=== PATIENT | male | born 1950 | race Caucasian/White ===

== ENCOUNTER 2018-05-24 11:41 | Outpatient (REF) | payer MEDICARE, MEDICAID, SELFPAY ==
[2018-05-24 19:26] LABS: BUN 14 mg/dL (7-18); CREATININE 0.86 mg/dL (0.70-1.30)
== END 2018-05-24 12:01 ==
LOC: NCHCN 11:41
PROVIDERS: PCP Physician Assistant; Visit Provider Physician Assistant Medical
DX: J44.9 Chronic obstructive pulmonary disease, unspecified (principal)
CPT/HCPCS: 84520; 82565

== ENCOUNTER 2019-10-31 22:23 | Outpatient (REF) | payer MEDICARE, MEDICAID, SELFPAY ==
[2019-10-31 19:04] LABS: Abs Immature Grans 0.02 k/cumm (0.0-0.09); Absolute Basophil Count 0.01 k/cumm (0.0-0.2); Absolute Eosinophil Count 0.12 k/cumm (0.0-0.7); Absolute Lymphocyte Count 2.71 k/cumm (1.2-3.4); Basophils % 0.1; Eosinophils % 0.9; HCT 44.4 % (40.0-50.0); HGB 15.1 g/dL (13.5-17.5); Immature Grans % 0.2 %; Lymphocytes % 21.2; Mean Corpuscular Hemoglobin 33.8 pg (27.0-33.0); Mean Corpuscular Volume 99.3 fL (80-95); Mean Platelet Volume 10.1 fL (8.0-11.0); Monocytes % 9.2; Neutrophils % 68.4; Platelet Count 275 x1000/uL (130-400); RBC 4.47 m/cumm (4.50-6.00); RBC Distribution Width 14.1 % (11.8-14.1); White Blood Cell Count 12.78 k/cumm (4.4-10.8)
[2019-10-31 19:22] LABS: ALT 20 U/L (16-63); AST 24 U/L (15-37); Albumin 3.6 g/dL (3.4-5.0); Alkaline Phosphatase 100 U/L (46-116); Anion Gap 8.2 mmol/L (3-11); BUN 13 mg/dL (7-18); Bilirubin, Total 0.5 mg/dL (0.2-1.0); CO2 29.8 mmol/L (21.0-32.0); CREATININE 0.77 mg/dL (0.70-1.30); Calcium 8.8 mg/dL (8.5-10.1); Chloride 102 mmol/L (98-107); Glucose 106 mg/dL (74-106); Potassium 4.4 mmol/L (3.5-5.1); Sodium 140 mmol/L (136-145); Total Protein 6.6 g/dL (6.4-8.2)
[2019-10-31 19:27] LABS: Absolute Monocyte Count 1.18 k/cumm (0.11-0.7); Absolute Neutrophil Count 8.74 k/cumm (1.2-6.7)
[2019-10-31 19:38] LABS: Calculated LDL 100 mg/dL (<100); Cholesterol 185 mg/dL (<200); HDL Cholesterol 76 mg/dL (40-60); Triglyceride 46 mg/dL (<150)
[2019-11-02 11:10] LABS: PSA, Diagnostic 5.3 ng/mL (0.0-6.5)
== END 2019-10-31 22:43 ==
LOC: NCHCN 22:23
PROVIDERS: PCP Physician Assistant; Visit Provider Physician Assistant
DX: E78.5 Hyperlipidemia, unspecified (principal); E27.9 Disorder of adrenal gland, unspecified; R97.20 Elevated prostate specific antigen [PSA]; N40.1 Benign prostatic hyperplasia with lower urinary tract symptoms; J44.9 Chronic obstructive pulmonary disease, unspecified
CPT/HCPCS: 80053; 80061; 84153; 85025

== ENCOUNTER 2020-06-19 13:45 | Outpatient (REF) | payer MEDICARE, MEDICAID, SELFPAY ==
[2020-06-20 17:29] LABS: COVID-19 RT-PCR UVMMC Result Negative (Negative)
== END 2020-06-19 13:46 | disposition home or self-care (01) ==
LOC: NCHCN 13:45
PROVIDERS: PCP Physician Assistant; Visit Provider Physician Assistant
DX: J06.9 Acute upper respiratory infection, unspecified (principal)
CPT/HCPCS: U0003; U0005

== ENCOUNTER 2021-02-05 12:47 | Outpatient (REF) | payer MEDICARE, MEDICAID, SELFPAY ==
--- OUTSIDE RECORDS SUMMARY | 2021-02-05 12:56 | XMS_ITS ---
:1950 Author Care Team Providers Name Role Phone HARLEY STINSON MD Primary Care Provider [phone] AFTAB FITCH General Surgeon [phone] ANDRES HENSLEY MD General Surgeon [phone] MACEY BRITT MD Urologist [phone] LAMIN HO MD Computer Instructor [phone] Allergies Code Code System Name Reaction Severity Status Onset [id number] RxNorm Milk ? ? Active ? Medications Name Status Start Date Stop Date ? ? alfuzosin ER 10 mg tablet,extended release 24 hr Active ? Not available Take 1 tablet every day by oral route after meals for 90 days. cetirizine 10 mg chewable tablet Active ? Not available Chew 1 tablet every day by oral route. diclofenac 1 % topical gel Active ? Not a vailable Flomax 0.4 mg capsule Active ? Not availa ble Take 1 capsule every day by oral route. Flonase 50 mcg/actuation nasal spray,suspension Active ? Not available [place] 1 spray every day by intranasal route. ibuprofen 800 mg tablet Active ? Not avai lable Take 1 tablet 3 times a day by oral route. sulfamethoxazole 800 mg-trimethoprim Completed ? 07/23/2020 160 mg tablet Ventolin HFA 90 mcg/actuation aerosol Active ? Not available inhaler Viagra 100 mg tablet Active ? Not availab le Take 1 tablet every day by oral route. Problems Name Status Onset Date Source ? Hyperlipidemia Active 11/16/2019 ? Hypertensive Disorder Unknown 11/16/2019 ? Hemorrhoids Active 11/16/2019 ? Chronic Obstructive Lung Disease Active 11/16/2019 ? Benign Prostatic Hyperplasia Active 11/16/2019 ? Prostatism Active 11/16/2019 ? Prostatic Pain Active 11/16/2019 ? Neck Pain Active 11/16/2019 ? Elevated Blood Pressure Active 11/16/2019 ? Basal Cell Carcinoma of Face Active ? His tory Closed Fracture of Fibula Active ? Histor y Screening Procedure Active ? History Neoplasm of Skin Active ? History Procedure by Method Active ? History Procedures Date Name Performed by ? 05/14/2017 Excision of Basal Cell Carcinoma Informa tion not available Notes: left face basal ce ll carcinoma; 09/08/2007 basal cell carcinoma of left lower lid 05/14/2017 Colonoscopy Information not alyssa enrique Notes: history of colon p olyps, multiple sessile colon polyps, scattered diverticulosis throughout the colon; 09/08/2007 normal colonoscopy Results Lab Results Date Name Specimen Result Interpretation Description Value Range Status Address ? 07/23/2020 Bladder Scan ? Date and Time 07/23/2020 ? ? P_urology: (PROC) [address] [place] [facility] ? ? Amount in 36mL ? ? P_urol ogy: Bladder [address] [place] [facility] 07/23/2020 Urinalysis, Urine ? Color Yellow ? ? P _urology: Dipstick, clean 41 [employer] [facility] ? ? Urine ? Appearance Clear ? ? P_uro logy: clean [address] [employer] [facility] ? ? Urine ? Glucose Normal ? ? P_urolog y: clean [address] [place] [facility] ? ? Urine ? Bilirubin Negative ? ? P_ur ology: clean [address] [facility] [facility] ? ? Urine ? Ketones Negative ? ? P_urol ogy: clean [address] [facility] ? ? Urine ? Specific 1.030 ? ? P_urolo gy: clean [place] [address] [employer] [facility] ? ? Urine ? Blood Trace ? ? P_urology: clean 41 [place] [facility] ? ? Urine ? Ph 6.0 ? ? P_urology: clean 41 [facility] ? ? Urine ? Protein Negative ? ? P_urol ogy: clean [address] [place] [facility] ? ? Urine ? Urobilinogen 0.2 ? ? P_u rology: clean [address] [facility] ? ? Urine ? Nitrite negative ? ? P_urol ogy: clean [address] [facility] [facility] ? ? Urine ? Leukocyte Negative ? ? P_ur ology: clean Esterase 41 [place] [employer] [facility] 07/03/2020 PSA, Total + S ? Total PSA 5.8 NG/mL <=6 Final North Free, Serum .5 Count ry or Plasma NG/ Hospita l Lab mL (Internal) : [address] ? ? S ? Free PSA 0.5 NG/mL ? Final Nort h [facility] (Internal) : [address] ? ? S ? Free PSA/PSA 0.09 ratio ? Final North Ratio [facility] (Internal) : [address] 11/21/2019 Bladder Scan ? Date and Time 11/21/2019 ? ? P_urology: (PROC) 9:38 [address] [place] [facility] ? ? ? Amount in 101ml ? ? P_urol ogy: Bladder 41 [place] [facility] 11/21/2019 Urinalysis, Urine ? Color Yellow ? ? P _urology: Dipstick, clean 41 Medi lico Reflex [employer] [facility] ? ? Urine ? Appearance Clear ? ? P_uro logy: clean 41 [facility] ? ? Urine ? Glucose Normal ? ? P_urolog y: clean 41 [facility] ? ? Urine ? Bilirubin Negative ? ? P_ur ology: clean 41 [facility] ? ? Urine ? Ketones Negative ? ? P_urol ogy: clean 41 [facility] ? ? Urine ? Specific 1.015 ? ? P_urolo gy: clean [place] [address] [place] [employer] [facility] ? ? Urine ? Blood Trace ? ? P_urology: clean 41 [facility] ? ? Urine ? Ph 6.0 ? ? P_urology: clean 41 Medical catch [facility] ? ? Urine ? Protein Negative ? ? P_urol ogy: clean 41 [facility] ? ? Urine ? Urobilinogen 0.2 ? ? P_u rology: clean 41 [facility] ? ? Urine ? Nitrite negative ? ? P_urol ogy: clean 41 [employer], [place] ? ? Urine ? Leukocyte Negative ? ? P_ur ology: clean Esterase 41 [facility] al [facility] 06/12/2017 Pathology TISS ? Report results ? Final N orth Study below [facility] (Internal) : [address] 05/14/2017 Pathology TISS ? Report results ? [facility] [address] Past Encounters 01/22/2021 Right Side Sciatica; Strain of Muscle of Left Hip; Abnormal Gait Jefferson Gonzalez, PT: [address], [place] [address], Ph. 07/23/2020 Raised Prostate Specific Antigen; Lower Urinary Tract Symptoms Due to Benign Prostatic Hypertrophy; Acquired Generalized Delayed Ejaculation; History of Prostatitis; History of Undescended Testes Macey Britt MD: [address] [place] [address], Ph. 11/21/2019 Raised Prostate Specific Antigen; Lower Urinary Tract Symptoms Due to Benign Prostatic Hypertrophy; History of Prostatitis; History of Undescended Testes Macey Britt MD: [address] [place] [address], Ph. Social History Tobacco Smoking Status Heavy Tobacco Smoker (1 pack per a da y) Vaccine List Vaccine Type COVID-19, mRNA, LNP-S, PF, 100 mcg/0.5 m L dose 07/31/2020?100 mcg 08/27/2020?100 mcg Plan of Care Reminders Provider Appointments None ? ? recorded. Lab None ? ? recorded. Referral None ? ? recorded. Procedures None ? ? recorded. Surgeries None ? ? recorded. Imaging None ? ? recorded. Vitals 07/23/2020 08:00AM Office 20 Weight Blood Pressure 79.38 kg 164/76 mm[Hg] 11/21/2019 09:30AM Office 15 Weight Blood Pressure 76.57 kg 128/60 mm[Hg] 04/07/2017 Weight Blood Pressure 77.11 kg 142/78 mm[Hg] 05/18/2012 Weight Blood Pressure 77.11 kg 114/68 mm[Hg] 03/17/2012 Weight Blood Pressure 77.11 kg 128/79 mm[Hg] 02/20/2012 Weight Blood Pressure 77.11 kg 130/76 mm[Hg] 01/27/2012 Weight Blood Pressure 77.11 kg 128/71 mm[Hg] 01/14/2012 Weight Blood Pressure 77.11 kg 126/71 mm[Hg]
--- OUTSIDE RECORDS SUMMARY | 2021-02-05 12:56 | XMS_ITS | Encounter Summary ---
:1950 Author Care Team Providers Name Role Phone Jean Jackson MD Primary Care Provider [phone] Srini Eden General Surgeon [phone] Aron Haley MD General Surgeon [phone] Kavin Dukes MD Cash On Delivery Clerk [phone] Jacob Britt MD Urologist [phone] Reason for Visit low back pain Assessment and Plan 1. Right side sciatica 2. Strain of muscle of left hip 3. Abnormal gait Discussion Note: None recorded.Patient educational handouts: No information available. Plan of Care Reminders Provider Appointments PT Outpt 02/12/2021 Jefferson Gonzalez, PT 2:30PM ? PT Outpt 02/19/2021 Jefferson slaughter, PT 1:30PM Lab None ? ? recorded. Referral None ? ? recorded. Procedures None ? ? recorded. Surgeries None ? ? recorded. Imaging None ? ? recorded. Medications Name Start Date ? ? alfuzosin ER 10 mg tablet,extended release 24 hr ? Take 1 tablet every day by oral route after meals for 90 days. cetirizine 10 mg chewable tablet ? Chew 1 tablet every day by oral route. diclofenac 1 % topical gel ? Flomax 0.4 mg capsule ? Take 1 capsule every day by oral route. Flonase 50 mcg/actuation nasal spray,suspension ? [place] 1 spray every day by intranasal route. ibuprofen 800 mg tablet ? Take 1 tablet 3 times a day by oral route. Ventolin HFA 90 mcg/actuation aerosol inhaler ? Viagra 100 mg tablet ? Take 1 tablet every day by oral route. Medications Administered None recorded. Vitals None recorded. Results Lab Results None recorded. Allergies Code Code System Name Reaction Severity Onset [id number] RxNorm Milk ? ? ? Problems Name Status Onset Date Source ? Hyperlipidemia Active 11/16/2019 ? Hemorrhoids Active 11/16/2019 ? Chronic [...] left lower lid 05/14/2017 Colonoscopy Information not avai lable Notes: history of colon p olyps, multiple sessile colon polyps, scattered diverticulosis throughout the colon; 09/08/2007 normal colonoscopy Vaccine List Vaccine Type COVID-19, mRNA, LNP-S, PF, 100 mcg/0.5 m L dose 07/31/2020?100 mcg 08/27/2020?100 mcg Social History Tobacco Smoking Status Heavy Tobacco Smoker (1 pack per a day) How many children do you have? 1 Marital status What is your code status? 0 How much tobacco do you chew? none Do you or have you ever used Never used electronic e-cigarettes or vape? cigarettes How many years have you smoked 50 tobacco? Former Occupation drove [employer] What is your level of alcohol Moderate consumption? Screened for Covid-19 Y Notes: no s/s Do you or have you ever used Never used smokeless tobacco smokeless tobacco? What is your level of caffeine Moderate Notes: 2 a day consumption? 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 Past Encounters 01/22/2021 Right Side Sciatica; Strain of Muscle of Left Hip; Abnormal Gait eJfferson Gonzalez, PT: [address] [place] [address], [address], [place] [address], Ph. History of Present Illness ? [facility] PT Evaluation Reported By: Patient Visit Type: Today's therapy visit: Init ial Evaluation Subjective:: Subjective ; Been having sarah n in my right hip now for about 8 months h oping you can help Onset of Injury/Symptoms:: Onset Date of Injury/Sympto ms ; March 2021. Mechanism of Injury/On set of Symptoms ; Sudden onset righ t hip pain while deer hunting, repetiti ve, episodic right hip pain with dynamic ADLs Patient Case History:: Patient Case History ; Quyen macdonald is a 70-year-old male presents to physical therapy with concerns about ongoing right hip pain and lower leg pain. He reports initial onset last March while deer hunting. He had sudden onset of sharp pain in the posterior right hip r egion with onset of lower extremity ref erred pain symptoms. He states he could alleviate the symptoms once he was sitting , sleeps without pain, but has limite d tolerance to standing ADLs. He is hopeful PT can help to alleviate symptoms and re store comfort and mobility for standing an d walking functions Pertinent Past Medical History: Pertinent Past Medical History includes ; COPD, hard of hearing, Pertinent Past Surgical History: Pertinent Past Surgic al History includes ; Multiple right hand surgerie s following work accident 50+ years ago *Barriers/Needs:: Barriers to Learning none id entified *Impairment Observations and Tolerance to Previous Lev el of Function ; No Daily Living:: significant close chain defi cits or right lower extremity discomfort w ith ADLs prior to 8 months ago. Current Lev el of Function ; Limited tolerance to stand ing ADLs, decreased ability to carry s econdary to hip pain, sudden onset poste rior right hip pain with right lower extrem ity referred pain symptoms Notes: Sharp stabbing in posterior right hip region, burning tingling in right lower extremity Review of Systems None recorded. Physical Exam ? Notes: Lumbar Spine Inspection and Palpation: No tenderness to palpation in lower quadrant bilaterally, pain-f ree PA mobilization of lumbar spine, within normal limits pelvic mobility.<p>Ruth mbar Spine Joint Mobility: Within normal limits</p><p>Lumbar Spine AR OM Screen:</p><p></p><table><tb raven><tr><th><strong>Lumbar Spine AROM</strong></th></tr><tr>< td></td><td>Inclinometer</td><td></td><td>Tape Measure</td><td></td></tr><t r><td>Flexion</td><td>{{55# }}</td><td></td><td>{ { }}</td><td></td></tr><t r><td>Extension</td><td>{{30# }}</td><td></td> <td>{{ }}</td><td></td></tr> <tr><td></td><td>R</td><td>L</td><td>R</td><td>L</ td></tr><tr><td>Rotation< /td><td>{{30# }}</td><td>{{30# }}</td><td>{{ }}< /td><td>{{ }}</td></tr><tr>< td>Side Bending</td><td>{{30# }} </td><td>{{30# }}</td><td>{{ }}</td><td>{{ }}</td ></tr></tbody></table><p> </p><p>
</p><p>Core/Abdominal Strength: 4/5 flexors and extensors</p><p> </p>
<p></p><p>Lumbar Spine Static and Repeated Motion Testing:</p><p>Pelvic /Sacral Alignment:</p><p></p>
<p> </p><p>Dermatomes: Bilateral lower extremities within normal limits</p><p>M yotomes: Bilateral lower extremities within normal limits</p><p>Reflexes: N/A</ p><p></p><table><tbody><tr><th><strong>Neural Provocation Testing</strong></th></tr><t r><td></td><td>R</td><td>L</td></tr><tr><td>Sci atic Nerve</td><td>{{positive* ne gative}}</td><td>{{positive negative*}}</td></t r><tr><td>Femoral Nerve</td><td>{{positive neg ative}}</td><td>{{positive negative}}</td></tr> <tr><td>Peroneal Nerve</td><td>{{positive neg ative}}</td><td>{{positive negative}}</td></tr><tr ><td>Tibial Nerve</td><td>{{positive neg ative}}</td><td>{{positive negative}}</td></tr></t body></table><p></p><p>
< /p><p>Upper Quadrant Screen: Within normal limits</p><p>Lower Quadrant Screen: Right knee flexion passive range of motion -10 degrees with increased a nterior thigh tension sensation</p><p>Right hip external rotation -15 degree s with endrange discomfort, right hip extension -10 degrees, right hip exten sukh strength 2/5, right hip abduction -10 degrees with lateral hip/posterior h ip discomfort, right hip flexor strength 3/5
</p><p>Positive Maria R test right lower extremity
</p><p>Significant tenderness to palpation post erior lateral right hip region.
</p><p>
</p><p >Spinal Screen: Within normal limits</p><p>
</p><p>Post ural Deviations/Comments: Standing with decreased hip extension on the right, pelvic shift to left primary comfort on left limb for weightbearing.</p><p>Gai t Deviations/Comments: Ambulates with absent right hip extension in late stance , diminished pelvic/thoracic counter rotation movement, mild right trunk l ash[place] and right limb mid stance.</p><p>
</p><p></p > Patient Education Provided Today: Education for hook lying hip rotator stret ch exercise, seated hip rotator stretch exercise, standing cross leg hip mobil ity exercise, parameters for home exercise program application for pain managem ent and hip mobility adventism.<div>
<p>Phys ical Therapy Assessment: Patient is a 70-year-old male [facility] to physical [facility] with concerns about ongoing right hip pain and right lower extremity pa in. He has significant objective deficits including diminished right h ip mobility, increased sensitivity to palpation in posterior right hip region, gait abnormalities, decreased right hip strength, and pain consistent with lik kristal right hip external rotator strain with associated sciatic nerve inv olvement and irritation. He will benefit from physical therapy to address the above deficits and restore pain-free hip mobility. I anticipate with adventism of right hip range of motion he will have resolution of sciatic n erve impingement and right lower extremity pain with standing ADL functions. </p><p>
</p><p>Rehab Potential:</p>{{excellent rehab potential good rehab p otential* fair rehab potential guarded rehab potential poor rehab potenti al not applicable}} {{to reach and maintain prior level of function to reach t he established goals*}}<p></p><p>Functional Outcome Measure: Patient was assessed using the following Functional Outcome Measure (FOM) </p>{{Germain Bal ance Score Dizziness Handicap Inventory(DHI) DASH Dynamic Gait Index Elderly Mobility Scale Functional Reach Test Lower Extremity Functio nal Scale (LEFS) Neck Disability Index Questionnaire Oswestry Disab ility Index* Quick DASH Shoulder Pain and Disability Index (SPADI) Tin etti Gait & Balance TUG Upper Extremity Functional Scale}}<p></p><p>Standardize d Testing Score/[place]ace Findings: 12% impairment</p><p>
</p>&lt ;p>Short Term Goals: Time frame defer to long-term goals</p><p>Iv Therapy Nurse Goals: Time frame to be met in 4 weeks</p><p>1. Patient able to stand for self-care and cooking functions without right hip or leg pain</p><p>2. Patient able t o ambulate greater than 15 minutes for functional activities without right hip or leg pain</p><p>3. Patient able to a send descend stairs without right hip pain</p><p>4. Patient able to squat to lift without right hip pain</p><p >5. Patient able to carry 40 pounds without right hip pain</p><p>6. Patient independent with hip mobility exercise program for pain management.</p><p&g t;
</p><p>Patient Goals: Get rid of this hip and leg pain so I can do thi ngs normally.</p><p>Certification Dates (Medicare Only): from </p>{{14# }} to {{02.21.# }}<p></p><p>Frequency of Treatment: </p>{{1# }} {{ti me(s) a week* time(s) a week/month one time/as needed N/A}}<p></p><p>Intens ity of Treatment: </p>{{15 min 30 min 45 min* 60 min 90 min N/A}}<p></p><p>Du ration of Treatment: </p>{{1 2 3 4* 5 6 7 8 N/ A}} {{days weeks* months}}<p></p ><p></p><table><tbody><tr><th>Planned Treatment Interventions:</th></tr><tr> <td>{{x# }}</td><td>CPT 15672: Therapeutic Exercise</td></tr><tr><td >{{ }}</td><td>CPT 42611: Therapeutic Activity</td></tr><tr><td >{{x# }}</td><td>CPT 61394: Manual Therapy</td></tr><tr><td>{{ }}</td><td>CPT 29379: Gait Training</td></tr><tr><td>{{ x# }}</td><td>CPT 28497: Neuromuscular Re-education</td></tr><tr><t d>{{ }}</td><td>
</td></tr></tbody></table>< p></p><p>Discharge Plan: </p >{{upon achieving goals or maximal benefit of therapy services* discharge from therapy today}}<p></p><p>This document was dictated utilizing voice rec ognition software and may contain inadvertent errors.</p><p>Time (min): </ p>{{40# }}<p></p><p>Time: In </p>{{1330# }} Out: {{1410# }}<p></p><p></p> </div>
[2021-02-07 10:50] LABS: COVID-19 RT-PCR UVMMC Result Negative (Negative)
== END 2021-02-05 12:48 | disposition home or self-care (01) ==
LOC: NCHCN 12:47
PROVIDERS: PCP Physician Assistant; Visit Provider Physician Assistant
DX: Z20.822 Contact with and (suspected) exposure to COVID-19 (principal)
CPT/HCPCS: U0003

== ENCOUNTER 2021-04-19 08:36 | Outpatient (REF) | payer MEDICARE, MEDICAID, SELFPAY ==
[2021-04-21 11:57] LABS: COVID-19 RT-PCR UVMMC Result Negative (Negative)
== END 2021-04-19 08:37 | disposition home or self-care (01) ==
LOC: NCHCN 08:36
PROVIDERS: PCP Physician Assistant; Visit Provider Physician Assistant
DX: Z20.822 Contact with and (suspected) exposure to COVID-19 (principal); R05.1 Acute cough
CPT/HCPCS: U0003

== ENCOUNTER 2021-08-15 10:01 | Outpatient (REF) | payer MEDICARE, MEDICAID, SELFPAY ==
[2021-08-15 19:38] LABS: Anion Gap 9.3 mmol/L (3-11); BUN 21 mg/dL (7-18); CO2 27.7 mmol/L (21.0-32.0); CREATININE 0.7 mg/dL (0.70-1.30); Chloride 104 mmol/L (98-107); Glucose 101 mg/dL (74-106); Potassium 4.6 mmol/L (3.5-5.1); Sodium 141 mmol/L (136-145)
== END 2021-08-15 10:02 | disposition home or self-care (01) ==
LOC: NCHCN 10:01
PROVIDERS: PCP Physician Assistant; Visit Provider Physician Assistant
DX: I10 Essential (primary) hypertension (principal); R73.09 Other abnormal glucose
CPT/HCPCS: 80048; 83036

== ENCOUNTER 2021-09-16 18:45 | Outpatient (REF) | payer MEDICARE, MEDICAID, SELFPAY ==
[2021-09-18 11:51] LABS: COVID-19 RT-PCR UVMMC Result Negative (Negative)
== END 2021-09-16 18:46 | disposition home or self-care (01) ==
LOC: NCHCN 18:45
PROVIDERS: PCP Physician Assistant; Visit Provider Internal Medicine
DX: Z20.822 Contact with and (suspected) exposure to COVID-19 (principal); R06.02 Shortness of breath
CPT/HCPCS: U0003; U0005

== ENCOUNTER 2023-10-23 09:22 | Outpatient (REF) | payer MEDICARE, MEDICAID, SELFPAY ==
[2023-10-23 19:10] LABS: Calculated LDL 105 mg/dL (<100); Cholesterol 204 mg/dL (<200); HDL Cholesterol 92 mg/dL (40-60); Triglyceride 36 mg/dL (<150)
== END 2023-10-23 09:23 | disposition home or self-care (01) ==
LOC: NCHCN 09:22
PROVIDERS: PCP Physician Assistant; Visit Provider Physician Assistant
DX: E78.5 Hyperlipidemia, unspecified (principal)
CPT/HCPCS: 80061